=== PATIENT | female | born 1965 | race African-American/Black ===

== ENCOUNTER 2017-07-18 13:13 | Outpatient (CLI) | payer BC | END 2017-07-18 13:14 | disposition home or self-care (01) | LOC: BICMAMMO 13:13 | PROVIDERS: ATTEND Obstetrics & Gynecology | DX: Z12.31 Encounter for screening mammogram for malignant neoplasm of breast (principal); Z80.3 Family history of malignant neoplasm of breast | CPT/HCPCS: 77063; 77067 ==

== ENCOUNTER 2017-12-19 03:16 | Emergency (ER) | payer BC ==
--- NOTE | 2017-12-19 08:18 | RAD ---
THREE VIEWS OF THE LEFT FOOT: COMPARISON: None. HISTORY: Left foot pain in the 4th and 5th toe metatarsal region. FINDINGS: Three views left foot show no evidence of acute fracture or dislocation. No soft tissue swelling is seen. No significant degenerative changes are seen. IMPRESSION: Unremarkable exam. POS: T[facility]
== END 2017-12-19 05:18 | disposition home or self-care (01) ==
LOC: ERS 03:16
DX: M19.072 Primary osteoarthritis, left ankle and foot (principal); E66.9 Obesity, unspecified; I10 Essential (primary) hypertension; Z79.899 Other long term (current) drug therapy
CPT/HCPCS: 36415; 84550; 85652; 86140

== ENCOUNTER 2018-09-30 09:38 | Emergency (ER) | payer BC ==
[2018-09-30] MEDS ORDERED: Ketorolac Tromethamine 30 MG/ML VIAL ONE (10:09)
== END 2018-09-30 10:16 | disposition home or self-care (01) ==
LOC: SCSER 09:38
DX: S33.5XXA Sprain of ligaments of lumbar spine, initial encounter (principal); I10 Essential (primary) hypertension; Z79.891 Long term (current) use of opiate analgesic; Z79.899 Other long term (current) drug therapy; X50.1XXA Overexertion from prolonged static or awkward postures, initial encounter
CPT/HCPCS: 96372; J1885

== ENCOUNTER 2019-03-12 11:02 | Outpatient (CLI) | payer BC ==
--- NOTE | 2019-03-12 11:38 | MMO ---
Bilateral MAMMO Bilat Screen [facility]. CLINICAL HISTORY: Patient is 53 years old and is seen for screening. The patient has the following family history of breast cancer: mother, in 2015, malignant (generic). The patient has no personal history of cancer. VIEWS: The views performed were: bilateral craniocaudal with tomosynthesis and bilateral mediolateral oblique with tomosynthesis. FILMS COMPARED: The present examination has been compared to prior imaging studies performed at [facility] on 09/12/2014, 04/10/2015, 04/29/2016 and 07/18/2017. This study has been interpreted with the assistance of computer-aided detection. MAMMOGRAM FINDINGS: There are scattered fibroglandular densities. There are no suspicious masses, suspicious calcifications, or new areas of architectural distortion. IMPRESSION: THERE IS NO MAMMOGRAPHIC EVIDENCE OF MALIGNANCY. A ROUTINE FOLLOW-UP MAMMOGRAM IN 1 YEAR IS RECOMMENDED. THE RESULTS OF THIS EXAM WERE SENT TO THE PATIENT. ACR BI-RADS Category 1 - Negative MAMMOGRAPHY NOTE: 1. A negative mammogram report should not delay a biopsy if a dominant of clinically suspicious mass is present. 2. Approximately 10% to 15% of breast cancers are not detected by mammography. 3. Adenosis and dense breasts may obscure an underlying neoplasm. Reported by: CHRIS CHEN MD Electonically Signed: [id number]
== END 2019-03-12 11:03 | disposition home or self-care (01) ==
LOC: BICMAMMO 11:02
PROVIDERS: ATTEND Obstetrics & Gynecology
DX: Z12.31 Encounter for screening mammogram for malignant neoplasm of breast (principal); Z80.3 Family history of malignant neoplasm of breast
CPT/HCPCS: 77063; 77067

== ENCOUNTER 2020-01-25 14:48 | Outpatient (CLI) | payer BC ==
--- NOTE | 2020-01-25 15:54 | MMO ---
Bilateral MAMMO Bilat Diag [facility]. CLINICAL HISTORY: Patient is 54 years old and is seen for diagnostic exam and pain in the right breast. The patient has the following family history of breast cancer: mother, in 2015, malignant (generic). The patient has no personal history of cancer. VIEWS: The views performed were: bilateral craniocaudal with tomosynthesis; bilateral mediolateral oblique with tomosynthesis; and bilateral mediolateral with tomosynthesis. FILMS COMPARED: The present examination has been compared to prior imaging studies performed at [facility] on 04/10/2015, 04/29/2016, 07/18/2017 and 03/12/2019. This study has been interpreted with the assistance of computer-aided detection. MAMMOGRAM FINDINGS: There are scattered fibroglandular densities. There are stable benign appearing calcifications seen in both breasts. There are no suspicious masses, suspicious calcifications, or new areas of architectural distortion. IMPRESSION: THERE IS NO MAMMOGRAPHIC EVIDENCE OF MALIGNANCY. A ROUTINE FOLLOW-UP MAMMOGRAM IN 1 YEAR IS RECOMMENDED. THE RESULTS OF THIS EXAM WERE SENT TO THE PATIENT. ACR BI-RADS Category 2 - Benign finding MAMMOGRAPHY NOTE: 1. A negative mammogram report should not delay a biopsy if a dominant of clinically suspicious mass is present. 2. Approximately 10% to 15% of breast cancers are not detected by mammography. 3. Adenosis and dense breasts may obscure an underlying neoplasm. Reported by: REECE GARRISON MD Electonically Signed: [id number]
== END 2020-01-25 14:49 | disposition home or self-care (01) ==
LOC: BICMAMMO 14:48
PROVIDERS: ATTEND Obstetrics & Gynecology
DX: N63.10 Unspecified lump in the right breast, unspecified quadrant (principal)
CPT/HCPCS: 77066; G0279

== ENCOUNTER 2020-04-17 08:04 | Outpatient (CLI) | payer BC ==
--- NOTE | 2020-04-17 10:15 | CT ---
CT ABDOMEN AND PELVIS WITHOUT CONTRAST: Date: 04/17/2020 HISTORY: 54-year-old female with epigastric pain, bloating. Right-sided abdominal pain. FINDINGS: Absence of IV contrast reduces the sensitivity of exam, particularly for evaluation of solid organs. Oral contrast was administered. The lung bases are clear. The patient is post cholecystectomy and hysterectomy. No free air or free fluid is seen in the abdome n or pelvis. There is a 12.0 mm right adrenal nodule and a 13.0 mm left adrenal nodule with attenuati on values consistent with benign adenomas. The small bowel loops are not abnormally dilated. The appe ndix is normal. No calculi seen in the kidneys, ureters, or the urinary bladder. No hydroureteronephrosis is seen on either side. There is a 3.5 cm cyst arising from the right renal cortex. Incidental note is made of a small, fat-containing spigelian hernia in the right lower quadrant. There is no evidence of aneurysmal dilatation of the abdominal aorta. Mild degenerative changes are s een in the spine. IMPRESSION: 1. No CT evidence of urinary tract calculi or obstruction. 2. Right renal cyst. 3. Bilateral adrenal adenomas. 4. Small, fat-containing spigelian hernia in the right lower quadrant. POS: OFF
== END 2020-04-17 08:05 | disposition home or self-care (01) ==
LOC: BICCT 08:04
DX: R10.13 Epigastric pain (principal); R10.31 Right lower quadrant pain; G89.29 Other chronic pain; R14.0 Abdominal distension (gaseous); N28.1 Cyst of kidney, acquired; D35.02 Benign neoplasm of left adrenal gland; D35.01 Benign neoplasm of right adrenal gland; K43.9 Ventral hernia without obstruction or gangrene
CPT/HCPCS: 74176

== ENCOUNTER 2021-04-11 09:52 | Outpatient (CLI) | payer BC | END 2021-04-11 09:53 | disposition home or self-care (01) | LOC: BICMAMMO 09:52 | PROVIDERS: ATTEND Obstetrics & Gynecology | DX: Z12.31 Encounter for screening mammogram for malignant neoplasm of breast (principal); Z80.3 Family history of malignant neoplasm of breast | CPT/HCPCS: 77063; 77067 ==

== ENCOUNTER 2021-10-24 12:03 | Outpatient (CLI) | payer BC | END 2021-10-24 12:04 | disposition home or self-care (01) | LOC: BICULT 12:03 | PROVIDERS: ATTEND Family Medicine | DX: M54.2 Cervicalgia (principal); R59.1 Generalized enlarged lymph nodes | CPT/HCPCS: 76536 ==

== ENCOUNTER 2022-06-05 14:07 | Outpatient (CLI) | payer BC | END 2022-06-05 14:08 | disposition home or self-care (01) | LOC: BICMAMMO 14:07 | PROVIDERS: ATTEND Obstetrics & Gynecology | DX: N63.10 Unspecified lump in the right breast, unspecified quadrant (principal) | CPT/HCPCS: 77066; G0279 ==

== ENCOUNTER 2023-04-07 08:28 | Outpatient (CLI) | payer BC | END 2023-04-07 08:29 | disposition home or self-care (01) | LOC: BICMAMMO 08:28 | PROVIDERS: ATTEND Obstetrics & Gynecology | DX: N63.10 Unspecified lump in the right breast, unspecified quadrant (principal) | CPT/HCPCS: 77066; G0279 ==